=== PATIENT | female | born 1970 | race Caucasian/White ===

== ENCOUNTER 2018-05-19 | Emergency (ER) | payer OTHER | END 2018-05-20 01:42 | disposition home or self-care (01) | DX: N20.1 Calculus of ureter (principal); E86.9 Volume depletion, unspecified | CPT/HCPCS: 74177-PO; 80053-PO; 96374; J1885; Q9967 ==

== ENCOUNTER → 2018-08-31 | Outpatient (CLI) | payer OTHER | LOC: FIMAGING 16:44 | PROVIDERS: ATTEND Physician Assistant Medical | DX: K76.0 Fatty (change of) liver, not elsewhere classified (principal); Z87.442 Personal history of urinary calculi; Z87.448 Personal history of other diseases of urinary system ==

== ENCOUNTER → 2018-10-10 | Outpatient (CLI) | payer OTHER | LOC: FIMAGING 10:53 | PROVIDERS: ATTEND Surgery | DX: E21.0 Primary hyperparathyroidism (principal) | CPT/HCPCS: 78070; A9500; A9516 ==

== ENCOUNTER 2018-10-19 05:37 | Observation (INO) | payer OTHER ==
--- NOTE | 2018-10-18 13:27 | GHP ---
DATE OF ADMISSION: 10/19/2018 CHIEF COMPLAINT: Hyperparathyroidism. HISTORY OF PRESENT ILLNESS: The patient is a 47-year-old female who presents for surgical evaluation for primary hyperparathyroidism. Her most recent labs reveal a parathyroid hormone level of 96.6 an d a calcium level of 10.3. She was referred to us by Dr. Diane. She has a history of kidney stones , most recently in June of last year. She has no other complaints at this time. PAST MEDICAL HISTORY: None. PAST SURGICAL HISTORY: None. FAMILY HISTORY: Noncontributory. MEDICATIONS: None. ALLERGIES: Penicillin and codeine. SOCIAL HISTORY: The patient is a nonsmoker and occasionally drinks alcohol. PHYSICAL EXAM: GENERAL: Well appearing, well dressed, in no acute distress. HEENT: Normocephalic, atraumatic. Pupils are equal and round. No scleral icterus. Mucous membranes are moist. No gross hearing deficits. NECK: In office ultrasound reveals a possible parathyroid adenoma on the right s boris; however, this could also represent a thyroid nodule. CARDIAC: Regular rate and rhythm, no clic ks or murmurs, rubs. RESPIRATORY: Clear to auscultation bilaterally. No increased work of breathin g. MUSCULOSKELETAL: Moves all extremities equally. NEUROLOGIC: Alert and oriented x3. PSYCHIATRI C: Appropriate mood and affect. SKIN: Warm and dry. No jaundice or rash. IMPRESSION/PLAN: This is a 47-year-old female with a history of primary hyperparathyroidism. Her pa rathyroid hormone level has fluctuated in the past, and is now high at 96.6. Her current calcium lev el is 10.3. She did undergo a sestamibi scan, which revealed no scintigraphic evidence of a parathyr oid adenoma. Given her history of kidney stones and her high parathyroid hormone levels, she will ne ed surgery to have a parathyroidectomy. We discussed all risks and options. Risks of surgery, inclu de, but are not limited to infection, bleeding, damage to surrounding nerves or structures, failure t o obtain the correct gland, heart attack, and . Patient understands and wishes to proceed. We will proceed with parathyroidectomy. /[id number]/MODL
[2018-10-19] MEDS ORDERED: LR 1,000 ML IV ONE (05:48)
[2018-10-19] MEDS ORDERED: VANCOMYCIN 1.5 GM in NS 250 ML IV ONE (06:00)
[2018-10-19] MEDS ORDERED: VANCOMYCIN PHARMACY TO DOSE MISC ONE (06:00)
[2018-10-19] MEDS ORDERED: THROMBIN (BOVINE) 5,000 UNIT VIAL TP ONE (06:51)
[2018-10-19] MEDS ORDERED: BACITRACIN ZINC 0.5 OZ OINTTUBE TP ONE (06:51)
[2018-10-19] MEDS ORDERED: BUPIVACAINE/EPI 0.5% 30 ML SDV ONE (06:52)
--- NOTE | 2018-10-19 07:09 | PDHPUP ---
History & Physical Update H&P update statement: This history and physical update is based on an assessment of the patient which was completed after admission or registration (within 24 hours), but prior to the surgery/procedure. H&P update: H&P reviewed & patient examined, no change in patient's condition since H&P completed
[2018-10-19] MEDS ORDERED: MIDAZOLAM 2 MG/2 ML VIAL ONE (07:15)
[2018-10-19] MEDS ORDERED: ONDANSETRON 4 MG/2 ML VIAL ONE (07:17)
[2018-10-19] MEDS ORDERED: LIDOCAINE 2% 5 ML SDV ONE (07:17)
[2018-10-19] MEDS ORDERED: ROCURONIUM 50 MG/5 ML VIAL ONE ×2 (07:17→08:42)
[2018-10-19] MEDS ORDERED: SUCCINYLCHOLINE CHLORIDE 200 MG/10 ML SYR IVP ONE (07:17)
[2018-10-19] MEDS ORDERED: DEXAMETHASONE 4 MG/ML VIAL ONE (07:17)
[2018-10-19] MEDS ORDERED: PROPOFOL 200 MG/20 ML VIAL ONE (07:18)
[2018-10-19] MEDS ORDERED: fentaNYL 100 MCG/2 ML INJ ONE ×2 (07:18→09:26)
--- NOTE | 2018-10-19 07:50 | PDANEPAE ---
ANE History of Present Illness parathyroidectomy ANE Past Medical History - Cardiovascular History Hx Hypertension: Yes Hx Arrhythmias: No Hx Chest Pain: No Hx Coronary Artery / Peripheral Vascular Disease: No Hx CHF / Valvular Disease: No Hx Palpitations: No - Pulmonary History Hx COPD: No Hx Asthma/Reactive Airway Disease: No Hx Recent Upper Respiratory Infection: No Hx Oxygen in Use at Home: No Hx Sleep Apnea: No Sleep Apnea Screening Result - Last Documented: Negative - Neurologic History Hx Cerebrovascular Accident: No Hx Seizures: No Hx Dementia: No - Endocrine History Hx Diabetes: No Hypothyroid: No Hyperthyroid: No Obesity: mild - Renal History Hx Renal Disorders: Yes Renal History Comment: kidney stones - Liver History Hx Hepatic Disorders: No - Neurological & Psychiatric Hx Hx Neurological and Psychiatric Disorders: No - Cancer History Hx Cancer: No - Congenital Disorder History Hx Congenital Disorders: No - GI History GERD: no Hx Gastrointestinal Disorders: No - Other Health History Other Health History: NEG - Chronic Pain History Chronic Pain: No - Surgical History Prior Surgeries: KIDNEY STONE 05/2018. TONSILECTOMY 1993 ANE Review of Systems Review of Systems: - Exercise capacity Exercise capacity: >=4 METS METS (RN): 4 METS ANE Patient History - Allergies Allergies/Adverse Reactions: codeine Allergy (Intermediate, Verified 05/19/18 23:08) Hives Penicillins Allergy (Intermediate, Verified 05/19/18 23:08) Hives - Home Medications Home Medications: Hydrochlorothiazide [HCTZ (*)] 25 mg PO BID 10/02/18 [Last Taken 10/18/18] Ibuprofen [Motrin (*)] 200 mg PO DAILY PRN 10/02/18 [Last Taken 10/05/18] - NPO status NPO Status: no food or drink >8 hours NPO Since - Liquids (Date): 10/18/18 NPO Since - Liquids (Time): 22:00 NPO Since - Solids (Date): 10/18/18 NPO Since - Solids (Time): 19:30 - Anes Hx Anes Hx: no prior problems - Smoking Hx Smoking Status: Never smoked ANE Labs/Vital Signs - Vital Signs Blood Pressure: 136/88 Heart Rate: 85 Respiratory Rate: 16 O2 Sat (%): 93 Height: 179.07 cm Weight: 104.326 kg ANE Physical Exam - Airway Mallampati Score: Class 2 Mouth exam: normal dental/mouth exam - Pulmonary Pulmonary: no respiratory distress - Cardiovascular Cardiovascular: regular rate and rhythym - ASA Status ASA Status: II ANE Anesthesia Plan Anesthesia Plan: general endotracheal anesthesia
[2018-10-19] MEDS ORDERED: MIDAZOLAM 2 MG/2 ML VIAL IVP ONE (07:52)
[2018-10-19] MEDS ORDERED: LABETALOL HCL 5 MG/ML 20 ML MDV ONE (08:08)
[2018-10-19] MEDS ORDERED: hydrALAZINE 20 MG/ML VIAL ONE (08:45)
[2018-10-19] MEDS ORDERED: SUGAMMADEX SODIUM 200 MG/2 ML VIAL IVP ONE (09:01)
[2018-10-19] MEDS ORDERED: ALBUTEROL 3 ML DEYVIAL IH PRN (09:02)
[2018-10-19] MEDS ORDERED: ONDANSETRON 4 MG/2 ML VIAL IVP PRN (09:02)
[2018-10-19] MEDS ORDERED: NALOXONE HCL 0.4 MG/ML INJ IVP PRN (09:02)
[2018-10-19] MEDS ORDERED: LR 500 ML IV PRN (09:02)
--- NOTE | 2018-10-19 09:25 | POSTANESTH ---
Post Anesthetic Evaluation Cardiovascular Status: Normal, Stable Respiratory Status: Normal, Stable Level of Consciousness/Mental Status: Can Participate in Eval Pain Control: Adequate, Prn Tx Ordered Nausea/Vomiting Control: Adequate, Prn Tx Ordered Complications Possibly Related to Anesthesia: None Noted
[2018-10-19] MEDS: fentaNYL 100 MCG/2 ML INJ IVP PRN ×2 (09:26→09:52)
[2018-10-19] MEDS ORDERED: HYDROmorphONE/DILAUDID 2 MG/ML INJ ONE (09:33)
--- NOTE | 2018-10-19 09:34 | POSTOPPROG ---
Post Op Note Date of Operation: 10/19/18 Surgeon: Lavon Britt Sheet Metal Worker: Kyung Anesthesiologist: Harrison Anesthesia: GET(General Endotracheal) Pre-op Diagnosis: Primary hyperparathyroidism Post-op Diagnosis: same Indication: same, kidney stones Procedure: L upper pole parathyroidectomy, L lower, R lower pole parathyroid bx , R upp Findings: L upper pole path c/w adenoma, PTH dropped from 82.8 to 27 to 12 to 11 Inf/Abcess present in the surg proc area at time of surgery?: No Depth: Deep Incisional (Fascial) EBL: Minimal Specimen(s): Left upper pole parathyroid Left lower pole parathyroid biopsy Right lower pole parathyroid biopsy Right upper pole parathyroid.
[2018-10-19] MEDS: HYDROmorphONE/DILAUDID 1 MG/ML INJ IVP PRN ×2 (09:38→10:20)
[2018-10-19] MEDS: oxyCODONE IR 5 MG TAB PO PRN ×3 (11:50→21:44)
[2018-10-19] MEDS: ACETAMINOPHEN 325 MG TAB PO PRN ×2 (12:39→18:34)
[2018-10-19] MEDS: HYDROCHLOROTHIAZIDE 25 MG TAB PO SCH (21:18)
[2018-10-20] MEDS: ACETAMINOPHEN 325 MG TAB PO PRN (07:16)
[2018-10-20] MEDS: HYDROCHLOROTHIAZIDE 25 MG TAB PO SCH (07:16)
[2018-10-20 07:20] VITALS: BP 150/89
--- NOTE | 2018-10-20 08:20 | SOAPPROG ---
SOAP Progress Note Assessment/Plan: Assessment: 47 y/o F s/p parathyroidectomy for hyperparathyroidism POD #1 S: Doing well. Pain is well controlled. Denies sxs of hypocalcemia O: Alert Afebrile VSS Neck incision cdi with surrounding erythema, warmth or induration rrr no increased wob Plan: D/c home today. Follow up in 2 weeks. 10/20/18 08:18 Objective: Vital Signs Temp Pulse Resp BP Pulse Ox 36.9 C 84 16 150/89 H 92 10/20/18 07:18 10/20/18 07:18 10/20/18 07:18 10/20/18 07:18 10/20/18 07:18 Laboratory Results 10/20/18 05:08 10/19/18 10/20/18 10/21/18 05:59 05:59 05:59 Intake Total 825 Output Total 705 Balance 120 ICD10 Worksheet Patient Problems: Problems Problem Status Onset Hyperparathyroidism Acute - ICD10 Problem Qualifiers (1) Hyperparathyroidism
--- NOTE | 2018-10-21 10:17 | GOP ---
DATE OF OPERATION: SURGEON: Lavon Britt MD [employer] SUPERVISOR: Tisha Tracey NP ANESTHESIOLOGIST: Ayo Terry MD PREOPERATIVE DIAGNOSIS: Hyperparathyroidism. POSTOPERATIVE DIAGNOSIS: Hyperparathyroidism. PROCEDURE PERFORMED: Parathyroidectomy. FINDINGS: Patient was found to have an enlarged 150 mg adenoma at the left upper pole position. Her other parathyroids also appeared to be mildly hypoplastic, but not as large as the one in the left u pper pole. The right upper pole parathyroid was not confirmed. The PTH number dropped from 86 down to 11 after removal of the adenoma. DESCRIPTION OF PROCEDURE: The patient was taken to the operating room where she received satisfactor y general endotracheal anesthesia. She was placed in supine position prepped and draped in the usual sterile fashion. A low collar incision made and carried through the platysma. Continual platysmal flaps were developed to the thyroid cartilage and to the sternal notch. Strap muscles were in the midline. Both sides of the neck were then explored by rotating the thyroid medially and divi kat of the middle thyroid veins. It was thought to be all 4 parathyroids were isolated. The left u pper pole was clearly the largest of the group, although the left lower pole was somewhat enlarged. The right lower pole appeared to be normal parathyroid. An area in the right upper was quite large, but on frozen section it seemed to be only fat. We elected to remove the left upper pole parathyroid after the right upper pole biopsy was returned as only fat. The left upper pole was removed. Hemos tasis was obtained by hemoclips. The specimen was sent to Pathology, confirmed to be consistent with an adenoma and the PTHs were checked at 5 and 10 and 15 minutes after removal and they dropped signi ficantly from 86 down to 20 and then down to 11. Hemostasis was assured. Some topical thrombin was placed in the surgical site. The strap muscles were approximated 3-0 Vicryl and the platysma was tello sed with 3-0 Vicryl. The wound was infiltrated with 0.5% Marcaine and the skin was closed with 4-0 M onocryl subcuticular suture. She tolerated the procedure well and was taken to the recovery room in good condition. There were no complications. Copy requested to: Dr Ck Preciado [place][id number][place] [place]
== END 2018-10-20 09:57 | disposition home or self-care (01) ==
LOC: F3E 05:37
PROVIDERS: ADMIT Surgery; ATTEND Surgery
PROC: 0GBR0ZZ Excision of Parathyroid Gland, Open Approach (ICD-10-PCS; principal; 2018-10-19 07:15)
DX: D35.1 Benign neoplasm of parathyroid gland (principal)
CPT/HCPCS: 60500; G0378; J0330; J0360; J1100; J1170; J2250; J2405; J2704; J3010; J3370